=== PATIENT | male | born 1970 | race Caucasian/White ===

== ENCOUNTER 2024-06-20 06:49 | Day surgery (SDC) | payer MEDICAID, OTHER ==
[~2024-06-20] VITALS: Ht 190.5 cm; Wt 117.9 kg
[~2024-06-20 06:49] MED LIST: ATEN100T PO; ATOR40TA52 PO; FEBU40TA PO; INDA1.252 PO; LOSA-535 PO; METF-370 PO; PANT40T PO
[2024-06-20] MEDS ORDERED: MIDAZOLAM HCL 2MG/2ML 2ml VIAL (1mg/ml) IM ONE (07:45)
[2024-06-20] MEDS ORDERED: fentaNYL CITRATE 100 MCG/2 ML VL IV ONE (07:45)
[2024-06-20] MEDS ORDERED: LIDOCAINE VISCOUS 2% 15ML UD PO ONE (07:45)
[2024-06-20] MEDS ORDERED: IODIXANOL 320MG/ML 100ML BTL IV ONE (08:08)
[2024-06-20] MEDS ORDERED: ONDANSETRON HCL 4 MG/2 ML VIAL ONE (09:21)
[2024-06-20] MEDS ORDERED: ANGIOMAX 250 MG VIAL IV ONE (09:45)
[2024-06-20] MEDS ORDERED: LIDOCAINE 2%HCL (LOCAL ANESTH.) INJ 20ML MDV ONE (09:45)
[2024-06-20] MEDS ORDERED: HEPARIN SODIUM (PORCINE) 5000 UNITS/ML 1ML VIAL ONE (09:45)
[2024-06-20] MEDS ORDERED: MIDAZOLAM HCL 2MG/2ML 2ml VIAL (1mg/ml) ONE (09:45)
[2024-06-20] MEDS ORDERED: VERAPAMIL 2.5MG/ML INJ 2ML VIAL IV ONE (09:45)
[2024-06-20] MEDS ORDERED: SODIUM CHL 0.9% 0 ML ONE (09:45)
--- NOTE | 2024-06-20 11:06 | DVHOP2 ---
Operative Report - 2 Report Details Date: 06/20/24 Preop Diagnosis: Calcification of the aortic valve. Postop Diagnosis: Aortic leaflet nodularities. Moderate aortic insufficiency. Surgeon: Damian Wang MD Anesthesiologist: Conscious sedation Anesthesia: Mac, Local Consent: The patient was informed of the risks and benefits of the procedure. These include but are not limited to complications of anesthesia, postoperative infection, incomplete relief of symptoms, recurrence of symptoms, damage to blood vessels, nerves and tendons, deep venous thrombosis, pulmonary embolism a nd possible need for repeat surgery in the future. Complications: No complications Estimated Blood Loss: Non Findings: Normal LV function. Mild aortic leaflet nodularities Indications for Surgery: Aortic insufficiency. Aortic leaflet nodularity Name of Procedure Performed Transesophageal echocardiogram Procedure Details Procedure Details: Prior full informed consent obtained the patient was prepped and draped in usual fashion placed in the left lateral and semi-Rosen positions, the patient was then given lidocaine gel to gargle. After conscious sedation administered the patient was placed in the appropriate positions and a transesophageal probe was passed without difficulty. Trans gastric views were obtained. Transesophageal views obtained in the standard fashion. Patient tolerated procedure well without complications. Conclusions: Technically good study. Sinus rhythm. Mild left atrial enlargement. Mild concentric LVH. The right ventricle and right atrium are normal. There is mild calcification of the non and left coronary cusps. These small nodularities resemble rheumatoid nodules. They are of high density and did not appear to be restricted motion of the leaflets. The mitral valve is structurally normal however there is also a mild calcification/nodularity at the posterior mitral leaflet and its connection to the chordae. The tricuspid and pulmonic or structurally normal. Pericardium is within normal limits. Left ventricular systolic function is preserved at 60% with normal RV function There is moderate aortic insufficiency. Trace tricuspid and mitral insufficiency. The appendage is without thrombi. In his normal. No vegetations or masses otherwise delineated. No evidence for ASD or VSD. Transgastric views were unremarkable. Condition Good Disposition Still a Patient Date of Service: Jun 20, 2024 Billing Provider: DAMIAN WANG Sr., MD Cardiology Common Codes: [id number] INP/OBS CARE (High) (Transesophageal echocardiography) DAMIAN WANG Sr., MD Jun 20, 2024 11:06
--- NOTE | 2024-06-20 13:10 | DVHOP2 ---
Operative Report - 2 Report Details Date: 06/20/24 Preop Diagnosis: Coronary artery disease. Postop Diagnosis: No significant CAD. Surgeon: Damian Wang MD Anesthesiologist: Conscious sedation Anesthesia: Mac, Local Consent: The patient was informed of the risks and benefits of the procedure. These include but are not limited to complications of anesthesia, postoperative infection, incomplete relief of symptoms, recurrence of symptoms, damage to bl ood vessels, nerves and tendons, deep venous thrombosis, pulmonary embolism and possible need for repeat surgery in the future. Complications: No complications Estimated Blood Loss: Non Findings: Normal coronary arteries Indications for Surgery: Chest pain. Abnormal stress test Name of Procedure Performed Left heart catheterization bilateral cine coronary angiography and left ventriculography. Procedure Details Procedure Details: Prior local anesthesia with 2% lidocaine to the right wrist and full informed consent obtained the patient was prepped and draped in the usual fashion followed by placement of a six Urdu sheath into the radial RV through which a tiger catheter was used for ventriculography and cannulation of both right and left coronary ostia without complications. Hemodynamics aortic blood pressure was 130/70. End-diastolic pressure was 12 without a gradient across the aortic valve on pullback. Coronary anatomy: The RCA is a large dominant vessel it is normal in its proximal mid and distal segments. The PDA in the posterolateral branches are normal. Left main is large and normal. Left anterior descending coronary is large and normal with two diagonals free of disease. The circumflex is large and normal. Two obtuse marginal branches are within normal limits. Ventriculography: Ventriculography was performed in the VALDEZ projection shows an EF of 50% with normal RV function. Impression: Normal left ventricular end-diastolic pressure at rest. Normal ejection fraction. No significant CAD. Recommendations: Continue medical therapy and risk factor modification. Condition Good Disposition Home Date of Service: Jun 20, 2024 Billing Provider: DAMIAN WANG Sr., MD Cardiology Common Codes: [id number] INP/OBS CARE (High) Cardiology Procedure Codes: 34998-[id number] HEART CATH W/INTRA INJ DAMIAN WANG Sr., MD Jun 20, 2024 13:10
== END 2024-06-20 13:05 | disposition home or self-care (01) ==
LOC: CATH 06:49
PROVIDERS: ATTEND Internal Medicine
DX: I25.10 Atherosclerotic heart disease of native coronary artery without angina pectoris (principal); I08.0 Rheumatic disorders of both mitral and aortic valves; R94.39 Abnormal result of other cardiovascular function study; I70.0 Atherosclerosis of aorta; R07.9 Chest pain, unspecified; Z88.0 Allergy status to penicillin
CPT/HCPCS: 93312; 93458; C1769; C1887; C1894; J1644; J2250; J2405; J3010; J7030; Q9967; 99152

== ENCOUNTER 2025-02-21 23:20 | Emergency (ER) | payer MEDICAID, OTHER ==
[~2025-02-21] VITALS: Ht 190.5 cm; Wt 120.4 kg
--- NOTE | 2025-02-22 00:08 | DVH ---
EXAM: CT HEAD WITHOUT CONTRAST INDICATION: Dizziness TECHNIQUE: CT of the head without intravenous contrast. Radiation Dose : 1. Head: CT Dose: CTDI volume is 68.27 mGy. Dose-length product is 1344.95 mGy*cm The dose indicators for CT are the volume Computed Tomography (CT) Dose Index (CTDIvol) and the Dose Length Product (DLP), and are measured in units of mGy and mGy-cm, respectively. These indicators are not patient dose, but values generated from the CT scanner acquisition factors. The report includes radiation exposure data for exposures received during this examination. COMPARISON: None FINDINGS: There is no evidence of acute intracranial hemorrhage, extra-axial collection, mass effect, midline s hift, herniation or hydrocephalus. Increased prominence of the ventricles, sulci and cisterns consistent with the sequelae of atrophic c ortical volume loss. The luu-white differentiation is intact. Moderate diffuse confluent periventricular and subcortical white matter hypoattenuation is nonspecifi c but may be related to small vessel ischemic disease. Bilateral maxillary mucosal sinus disease, [id number]-left. The remaining visualized paranasa l sinuses and mastoid air cells are clear. The surrounding soft tissues and osseous structures are unremarkable. IMPRESSION: 1. No CT evidence of acute intracranial abnormality. 2. Moderate diffuse confluent periventricular and subcortical white matter hypoattenuation is nonspec ific but may be related to small vessel ischemic disease. 3. Bilateral maxillary mucosal sinus disease, [id number]-left. Radiation optimization: All CT scans at this facility use at least one of these dose optimization latricia hniques: automated exposure control mA and/or kV adjustment per patient size (includes targeted exam s where dose is matched to clinical indication) or iterative reconstruction.
[2025-02-22] MEDS ORDERED: PROM25TA21 PO (00:46)
--- NOTE | 2025-02-22 00:46 | ED.PDOC ---
History of Present Illness HPI Comments This patient is a pleasant but morbidly obese 55-year-old male who arrives the ED today with complaints of dizziness events that have worsened over the past three days but has been going on for approximately three weeks. Patient denies any history of intracranial concerns. Patient does state he has had vertigo in the past. Patient denies any diagnosis of inner ear concerns. Patient states the symptoms come on and most times resolves with medication, but the past three days has been relatively consistent. Patient went to urgent care and they sent him to our facility with a request for a head CT. Patient has additional laboratories pending and other facilities. Chief Complaint: Dizziness Time Seen by MD: 23:25 Reviewed Notes: Nurses Notes Allergies: Coded Allergies: Amlodipine (Verified Allergy, Unknown, ITCHING, 06/18/24) Chlorthalidone (Verified Allergy, Unknown, MUSCLE CRAMPS, 06/18/24) Uncoded Allergies: PCN (Allergy, Unknown, RASH, 06/18/24) Home Meds Reported Medications Indapamide (Indapamide) 1.25 Mg Tab, 1.25 MG PO DAILY for EDEMA, TAB 06/18/24 Atorvastatin Calcium (ATORVASTATIN CALCIUM) 40 Mg Tab, 1 TAB PO DAILY for HIGH CHOLESTEROL, #30 TAB 5 Refills 06/18/24 Losartan Potassium (Losartan Potassium) 100 Mg Tab, 100 MG PO DAILY for HTN for 30 Days, MG 06/18/24 Atenolol (Atenolol) 100 Mg Tab, 100 MG PO DAILY for HTN, MG 06/18/24 Pantoprazole Sodium Sesquihydr (Pantoprazole Sodium) 40 Mg Tab, 20 MG PO DAILY for GERD, TAB 06/18/24 Febuxostat (Uloric) 40 Mg Tab, 1 TAB PO DAILY for GOUT, #90 TAB 1 Refill 06/18/24 Metformin Hydrochloride (Metformin Hcl) 500 Mg Tab, 500 MG PO TID for DIABETES for 30 Days, MG 06/18/24 Information Source: Patient, Friend Mode of Arrival: Ambulatory Severity: Moderate Timing: Weeks Duration: Intermittent Prehospital treatment: Treatment Past Medical History PAST MEDICAL HISTORY: Denies Past Medical History (Other): Recent history of vertigo Surgical History: Denies all surgeries Family History Family History: Reviewed,noncontributory to illness, No family hx of Cancer, No family hx of DM, No family hx of Heart mary, No family hx of HTN, No family hx ofKidney mary, No family hx of Liver mary, No family hx of Lung mary, No family hx of Stroke Social History Smoker: Non-Smoker Alcohol: Denies ETOH Use Drugs: Denies Drug Use Lives In: Home Constitutional: denies: chills, diaphoresis, fatigue, fever, malaise, sweats, weakness, others EENTM: denies: blurred vision, double vision, ear bleeding, ear discharge, ear drainage, ear pain, ear ringing, eye pain, eye redness, hearing loss, mouth pain, mouth swelling, nasal discharge, nose bleeding, nose congestion, nose pain, photophobia, tearing, throat pain, throat swelling, voice changes, others Respiratory: denies: cough, hemoptysis, orthopnea, SOB at rest, shortness of breath, SOB with excertion, stridor, wheezing, others Cardiovascular: denies: chest pain, dizzy spells, diaphoresis, Dyspnea on exertion, edema, irregular heart beat, left arm pain, lightheadedness, palpitations, PND, syncope, others Gastrointestinal: reports: nausea; denies: abdomen distended, abdominal pain, blood streaked bowels, constipated, diarrhea, dysphagia, difficulty swallowing, hematemesis, melena, poor appetite, poor fluid intake, rectal bleeding, rectal pain, vomiting, others Genitourinary: denies: burning, dysuria, flank pain, frequency, hematuria, incontinence, penile discharge, penile sore, pain, testicle pain, testicle swelling, urgency, others Neurological: reports: dizziness; denies: fainting, headache, left sided numbness, left sided weakness, numbness, paresthesia, pre-existing deficit, right sided numbness, right sided weakness, seizure, speech problems, tingling, tremors, weakness, others Musculoskeletal: denies: back pain, gout, joint pain, joint swelling, muscle pain, muscle stiffness, neck pain, others Integumetry: denies: bruises, change in color, change in hair/nails, dryness, laceration, lesions, lumps, rash, wounds, others Allergic/Immunocompromised: denies: Difficulty Healing, Frequent Infections, Hives, Itching, others Hematologic/Lymphatic: denies: anemia, blood clots, easy bleeding, easy bruising, swollen glands, others Endocrine: denies: excessive hunger, excessive sweating, excessive thirst, excessive urination, flushing, intolerance to cold, intolerance to heat, unexplained weight gain, unexplained weight loss, others Psychiatric: denies: anxiety, bipolar disorder, depression, hopeless, panic disorder, schizophrenia, sleepless, suicidal, others Physical Exam General Appearance: Moderate Distress (Moderate distress due to dizziness concerns), Obese HEENT: Head (Unremarkable cranial evaluation. No signs of trauma. No skull depressions or deformities.), Normal ENT Inspection, Pharynx Normal, TMs Normal Neck: Full Range of Motion, Non-Tender, Normal, Normal Inspection Respiratory: Chest Non-Tender, Lungs Clear, No Accessory Muscle Use, No Re spiratory Distress, Normal Breath Sounds Cardiovascular: No Edema, No JVD, No Murmur, No Gallop, Normal Peripheral Pulses, Regular Rate/Rhythm Breast Exam: Deferred Gastrointestinal: No Organomegaly, Non Tender, No Pulsatile Mass, Normal Bowel Sounds, Soft Genitalia: Deferred Pelvic: Deferred Rectal: Deferred Extremities: No calf tenderness, Normal capillary refill, Normal inspection, Normal range of motion, Non-tender, No pedal edema Neurologic: Alert, No Motor Deficits, Normal Affect, Normal Mood, No Sensory Deficits Cerebellar Function: NOT DONE Reflexes: NOT DONE Skin: Dry, Normal Color, Warm Lymphatic: No Adenopathy Was a procedure done? Was a procedure done?: No Differential Dx Considerations may include: Intracranial mass, inner ear concerns X-Ray, Labs, Meds, VS Vital Signs Date Time Temp Pulse Resp B/P (MAP) Pulse Ox O2 Delivery O2 Flow Rate FiO2 02/21/25 23:22 97.6 74 16 145/81 95 97.6 X-Ray, Labs, Meds, VS Comment All studies performed in the ED were evaluated by me personally. Imaging studies of the cranium were unremarkable for any acute intracranial process. Advised that the patient that his results were unremarkable and therefore, his concerns may be related to inner ear issues. Patient has been advised to co ntinue follow up with the primary care provider for management. Time of 1ST Reevaluation: 00:44 Reevaluation 1ST: Improved Consultation: PCP, Neurology Patient Education/Counseling: Diagnosis, Treatment Family Education/Counseling: Diagnosis, Treatment SEPSIS Sepsis Screen Date sepsis recognized/suspect: Feb 21, 2025 Time Sepsis recognized/suspect: 2321 Recent Procedure: No On Antibiotic Therapy: No Respiratory Rate >20: No Heart Rate >90: No Temp<36 C (96.8 F) or >38.3 C: No SBP <90 or MAP <65 mmHG: No New Acute Mental Status Change: No Is the patient on CPAP, BIPAP,: No Physician Orders Head Without Contrast (02/21/25 23:40) Vital Signs Date Time Temp Pulse Resp B/P (MAP) Pulse Ox O2 Delivery O2 Flow Rate FiO2 02/21/25 23:22 97.6 74 16 145/81 95 97.6 Departure 1 Departure Time of Disposition: 00:44 Impression: Primary Impression: Dizziness Disposition: HOME / SELF CARE / HOMELESS Condition: Stable Additional Instructions: Advise utilizing medication as needed for symptomatic relief. If symptoms continue, patient will need to follow up with the primary care provider for continued management. e-Prescriptions Promethazine HCl (Promethazine Hydrochlorid) 25 Mg Tab 25 MG PO Q8HP PRN, #10 TAB Prov: TO CASPER PAC 02/22/25 Discharged With: Self, Friend Critical Care Note Critical Care Time?: No Stability Stability form required: No Heart Score Heart Score: Heart Score Response (Comments) Value History N/A 0 EKG N/A 0 Age N/A 0 Risk Factors N/A 0 Troponin N/A 0 Total 0 TO CASPER PAC Feb 22, 2025 00:46
[2025-02-22] MEDS: ONDANSETRON ODT 4 MG TAB PO ONE (01:26)
[2025-02-22] MEDS: PROMETHAZINE HCL 6.25 MG/5 ML ORAL SYRUP PO ONE (01:26)
[2025-02-22 01:35] VITALS: BP 133/74; PULSE 72; RESP 18; TEMP 97.2; O2SAT 98
== END 2025-02-22 01:38 | disposition home or self-care (01) ==
LOC: ER 23:20
DX: R42 Dizziness and giddiness (principal); Z88.8 Allergy status to other drugs, medicaments and biological substances; Z79.84 Long term (current) use of oral hypoglycemic drugs; Z79.899 Other long term (current) drug therapy
CPT/HCPCS: 70450; 99284; Q0162